=== PATIENT | female | born 1990 | race Two or more races ===

== ENCOUNTER 2016-10-21 05:59 | Emergency (ER) | payer MEDICAID ==
[~2016-10-21] VITALS: Ht 162.6 cm; Wt 81.6 kg
[2016-10-21 07:53] VITALS: BP 118/77
== END 2016-10-21 08:00 | disposition home or self-care (01) ==
LOC: ER 06:08
DX: S20.212A Contusion of left front wall of thorax, initial encounter (principal); S00.81XA Abrasion of other part of head, initial encounter; F17.210 Nicotine dependence, cigarettes, uncomplicated; F12.10 Cannabis abuse, uncomplicated; Z98.51 Tubal ligation status; Z98.890 Other specified postprocedural states; Y08.89XA Assault by other specified means, initial encounter; Y93.89 Activity, other specified; Y99.8 Other external cause status; Y92.89 Other specified places as the place of occurrence of the external cause
CPT/HCPCS: 70450; 71101

== ENCOUNTER 2018-02-26 00:02 | Emergency (ER) | payer MEDICAID ==
[~2018-02-26] VITALS: Ht 162.6 cm; Wt 83.9 kg
[2018-02-26 00:13] VITALS: BP 135/82
[2018-02-26] MEDS ORDERED: LIDOCAINE 1% (LOCAL ANESTH.) PF 5ml SDV ID ONE (00:30)
[2018-02-26] MEDS ORDERED: BACITRACIN TOP OINT 1 UD PKG TOP ONE ×2 (00:30→00:45)
[2018-02-26] MEDS ORDERED: TETANUS-DIPTH-ACEL PERTUSSIS 0.5ML SYRG IM ONE (00:45)
== END 2018-02-26 00:54 | disposition home or self-care (01) ==
LOC: ER 00:04
DX: S61.412A Laceration without foreign body of left hand, initial encounter (principal); F17.210 Nicotine dependence, cigarettes, uncomplicated; W26.8XXA Contact with other sharp object(s), not elsewhere classified, initial encounter; Y93.89 Activity, other specified; Y92.89 Other specified places as the place of occurrence of the external cause; Y99.8 Other external cause status
CPT/HCPCS: 12001; 90471; 90715

== ENCOUNTER 2018-07-28 12:42 | Emergency (ER) | payer MEDICAID ==
[~2018-07-28] VITALS: Ht 162.6 cm; Wt 81.6 kg
[2018-07-28 12:57] VITALS: BP 110/63
[2018-07-28] MEDS ORDERED: TETANUS-DIPTH-ACEL PERTUSSIS 0.5ML SYRG IM ONE (14:45)
== END 2018-07-28 14:55 | disposition home or self-care (01) ==
LOC: ER 12:44
DX: S61.031A Puncture wound without foreign body of right thumb without damage to nail, initial encounter (principal); F17.210 Nicotine dependence, cigarettes, uncomplicated; F12.10 Cannabis abuse, uncomplicated; F11.10 Opioid abuse, uncomplicated; W27.3XXA Contact with needle (sewing), initial encounter; Y93.89 Activity, other specified; Y92.89 Other specified places as the place of occurrence of the external cause; Y99.8 Other external cause status
CPT/HCPCS: 73130

== ENCOUNTER 2019-02-04 02:25 | Emergency (ER) | payer MEDICAID ==
[~2019-02-04] VITALS: Ht 162.6 cm; Wt 81.6 kg
[2019-02-04 02:38] VITALS: BP 138/83
[2019-02-04] MEDS ORDERED: KETOROLAC TROMETH 60MG/2ML VIAL IM ONE (03:00)
[2019-02-04] MEDS ORDERED: cefTRIAXone SOD 1,000 MG VL IM ONE (03:00)
== END 2019-02-04 03:04 | disposition home or self-care (01) ==
LOC: ER 02:27
DX: K04.7 Periapical abscess without sinus (principal); K03.81 Cracked tooth; F17.210 Nicotine dependence, cigarettes, uncomplicated; F12.10 Cannabis abuse, uncomplicated; Z98.51 Tubal ligation status
CPT/HCPCS: 96372; 99283; J0696; J1885

== ENCOUNTER 2019-09-13 12:38 | Emergency (ER) | payer MEDICAID ==
[~2019-09-13] VITALS: Ht 162.6 cm; Wt 81.6 kg
[2019-09-13 12:58] VITALS: BP 124/70
== END 2019-09-13 19:01 | disposition left against medical advice (07) ==
LOC: ER 12:38
DX: L02.413 Cutaneous abscess of right upper limb (principal); Z53.21 Procedure and treatment not carried out due to patient leaving prior to being seen by health care provider

== ENCOUNTER 2019-09-14 07:00 | Emergency (ER) | payer MEDICAID ==
[~2019-09-14] VITALS: Ht 162.6 cm; Wt 81.6 kg
[2019-09-14 09:26] VITALS: BP 115/76
[2019-09-14] MEDS ORDERED: LIDOCAINE 1% HCL (LOCAL ANESTH.) INJ 20ML MDV IJ ONE (10:00)
[2019-09-14] MEDS ORDERED: cefTRIAXone SOD 1,000 MG VL IM ONE (10:45)
== END 2019-09-14 10:55 | disposition home or self-care (01) ==
LOC: ER 07:00
DX: L02.413 Cutaneous abscess of right upper limb (principal); L02.512 Cutaneous abscess of left hand
CPT/HCPCS: 10061; 96372; 99284; J0696; J2001

== ENCOUNTER → 2019-12-21 | Emergency (ER) | payer MEDICAID | END | disposition left against medical advice (07) | LOC: ER 19:16 | DX: L02.91 Cutaneous abscess, unspecified (principal); Z53.21 Procedure and treatment not carried out due to patient leaving prior to being seen by health care provider ==

== ENCOUNTER 2020-01-11 11:16 | Emergency (ER) | payer MEDICAID ==
[~2020-01-11] VITALS: Ht 162.6 cm; Wt 72.6 kg
[2020-01-11 11:27] VITALS: BP 114/61
[2020-01-11] MEDS ORDERED: cefTRIAXone SOD 1,000 MG VL IM ONE (12:15)
== END 2020-01-11 12:42 | disposition home or self-care (01) ==
LOC: ER 11:16
DX: L03.114 Cellulitis of left upper limb (principal); F17.210 Nicotine dependence, cigarettes, uncomplicated
CPT/HCPCS: 96372; 99283; J0696

== ENCOUNTER 2020-01-13 02:49 | Inpatient (IN) | payer MEDICAID ==
[~2020-01-13] VITALS: Ht 162.6 cm; Wt 91.2 kg
[2020-01-13 05:57] LABS: Urine Bacteria MOD /hpf (None Seen); Urine Blood Negative /uL (Negative); Urine Mucus FEW (None Seen); Urine Specific Gravity 1.024 (1.001-1.035); Urine WBC 10 /hpf (0 - 5)
[2020-01-13 05:58] LABS: Basophils # (auto) 0 10 ^3/uL (0-0.2); Basophils % (auto) 0.3 % (0.0-2.0); Eosinophils # (auto) 0.2 10 ^3/uL (0-0.8); Eosinophils % (auto) 2.7 % (0.0-7.0); Hematocrit 38.7 % (36.0-46.0); Lymphocytes # (auto) 1.3 10 ^3/uL (0.4-5.4); Lymphocytes % (auto) 15.8 % (10.0-50.0); Mean Corpuscular Hgb Conc. 33.5 g/dL (32.0-36.0); Mean Corpuscular Volume 89.4 fL (80.0-100.0); Monocytes # (auto) 0.8 10 ^3/uL (0-1.3); Monocytes % (auto) 9.6 % (0.0-12.0); Neutrophils % (auto) 71.6 % (37.0-80.0); Platelet Count (auto) 270 10^3/uL (140-450); Red Blood Cells 4.33 10^6/uL (4.0-5.20); Red Cell Distribution Width 12.4 % (11.8-14.3); White Blood Cell 8.3 10^3/uL (4.4-10.8)
[2020-01-13 06:07] LABS: Chloride 106 mmol/L (98-107); Potassium 3.9 mmol/L (3.5-5.1); Sodium 136 mmol/L (136-145)
[2020-01-13 06:10] LABS: Alcohol, Urine < 3.0 mg/dL (0-5); Amphetamine Screen, Urine POSITIVE (NEGATIVE); Barbiturate Scree,Urine NEGATIVE (NEGATIVE); Benzodiazephine Screen, Urine NEGATIVE (NEGATIVE); Cannabinoid Screen, Urine NEGATIVE (NEGATIVE); Cocaine Screen, Urine NEGATIVE (NEGATIVE); Opiate Scree,Urine POSITIVE (NEGATIVE)
[2020-01-13 06:15] LABS: INR 0.98 (0.9-1.15); Partial Thromboplastin Time 29.1 sec (23.64-32.05)
[2020-01-13 06:16] LABS: Alanine Aminotransferase 19 U/L (13-56); Albumin 3.2 g/dL (3.4-5.0); Alkaline Phosphatase 89 U/L (45-117); Anion Gap 4 (5-15); Aspartate Aminotransferase 19 U/L (15-37); BUN/Creatinine Ratio 19.7; Bilirubin, Total 0.3 mg/dL (0.2-1.0); Blood Urea Nitrogen 13 mg/dL (7-18); Calcium 8.5 mg/dL (8.5-10.1); Carbon Dioxide 26 mmol/L (21-32); GFR African American 135 mL/min; GFR Non-African American 112 mL/min; Glucose 94 mg/dL (74-106); Magnesium 2.3 mg/dL (1.6-2.6); Total Protein 7.3 g/dL (6.4-8.2)
[2020-01-13 06:18] LABS: Phencyclidine Screen, Urine NEGATIVE (NEGATIVE)
[2020-01-13] MEDS ORDERED: cefTRIAXone 1GM/50ML D5W 50 ML IV ONE ×2 (07:15→08:45)
[2020-01-13] MEDS ORDERED: TETANUS-DIPTH-ACEL PERTUSSIS 0.5ML SYR Tdap IM ONE (08:45)
[2020-01-13] MEDS ORDERED: ENOXAPARIN SOD 60 MG/0.6 ML SYRINGE SC ONE (08:45)
[2020-01-13] MEDS ORDERED: HYDROcodone-ACET 5/325MG TAB PO PRN (09:45)
[2020-01-13] MEDS ORDERED: VANCOMYCIN PER PHARMACY 0 MG IV SCH (09:45)
[2020-01-13] MEDS ORDERED: VANCOMYCIN 1GM/250ML 250 ML IV ONE (09:45)
[2020-01-13] MEDS ORDERED: ACETAMINOPHEN 325 MG TAB PO PRN (09:45)
[2020-01-13] MEDS: SODIUM CHLORIDE 0.9% 1,000 ML IV SCH ×2 (10:05→22:44)
[2020-01-13] MEDS ORDERED: ENOXAPARIN SOD 80 MG/0.8ML SYRINGE SC ONE (10:15)
--- NOTE | 2020-01-13 11:45 | NUR ---
Telemetry admit from ER NICO ESTEBAN admitted to Telemetry unit after SBAR received. Patient oriented to SHONNA LOPEZ RN, unit, room, bed, and unit policies regarding patient care and visiting hours. Patient now on continuous telemetry monitoring, tele box # [id number]. Patient weighed by bedscale and encouraged to call if they need something. All questions and concerns addressed, patient verbalized understanding.
--- NOTE | 2020-01-13 11:55 | NUR ---
WOUND CARE NOTE: IN TO SEE PATIENT AT THIS TIME PER WOUND CARE CONSULT REQUEST. PATIENT WAS NOTED AT THAT TIME TO HAVE SKIN INTEGRITY ISSUES TO LEFT FOREARM, WITH ADMITTING DIAGNOSIS OF LEFT UPPER EXTREMITY CELLULITIS. PATIENT RECENTLY ADMITTED TO [facility] FROM ER. SHE HAS INTACT SKIN NOTED. LEFT FOREARM HAS EDEMA, ERYTHEMA, AND INDURATION. SKIN IS TENDER TO THE TOUCH. ADVISED BEDSIDE NURSE AND PATIENT TO ELEVATE LEFT FOREARM USING MULTIPLE PILLOWS TO HELP WITH EDEMA CONTROL. WOUND PHOTO TAKEN AT THIS TIME. NO DRESSING REQUIRED, NO OPEN OR WEEPING AREAS NOTED. RECOMMEND: SURGICAL CONSULT, ELEVATION OF LEFT FOREARM FOR EDEMA CONTROL, SKIN/WOUND CARE PLAN. NO FURTHER WOUND CARE MONITORING NEEDED AT THIS TIME. Addendum: 01/13/20 at 1908 by Ghazal Beauchamp RN Amended: Links added.
[2020-01-13] MEDS ORDERED: PIPERACILLIN-TAZOB 3.375GM 100 ML IV SCH ×2 (12:00)
[2020-01-13] MEDS ORDERED: SULF400T11 PO (12:56)
[2020-01-13 13:00] VITALS: BP 98/54
[2020-01-13 17:00] VITALS: BP 107/61
[2020-01-13] MEDS ORDERED: WARFARIN SODIUM 5 MG TAB PO ONE (17:00)
[2020-01-13] MEDS: VANCOMYCIN 1GM/250ML 250 ML IV SCH (18:00)
--- NOTE | 2020-01-13 18:30 | NUR ---
PT STATED SHE NEEDS "MEDICATION FOR WITHDRAWS". STATED SHE FEELS ANXIOUS AND RESTLESS. PAGED DR Ira OCAMPO. AWAITING CALLBACK. WILL ENDORSE TO NIGHT NURSE.
--- NOTE | 2020-01-13 19:30 | NUR ---
Opening Shift Note Assumed care of patient, awake and alert x4. Patient denies pain or shortness of breath at this time. Instructed on plan of care and to call for assistance as needed, patient verbalized understanding. Bed is locked in lowest position, side rails x 2 are up, and call light is within reach.
--- NOTE | 2020-01-13 19:50 | NUR ---
IV Removal IV to right upper arm DC'd due to infiltration. IV DC'd with clean sterile technique, catheter fully intact. Pressure dressing applied to site and provided patient with an ice pack. Patient tolerated well.
--- NOTE | 2020-01-13 20:00 | NUR ---
Patient Requesting to Leave AMA Patient requesting to leave AMA. 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 Newman has been paged and is still awaiting a call back but she will re-page Dr. Newman to inform him that she needs medication for withdrawals, patient verbalized understanding and still continues to want to leave AMA. This RN educated and discussed with patient the risks and complications, including potential , of leaving AMA with her diagnosis of a DVT to the right lower extremity and left upper extremity abscess. This RN discussed with patient that there is a risk of the blood clot in her right leg dislodging and traveling into her lungs which could potentially lead to . This RN also discussed with patient that she is on IV antibiotics for her abscess to her left upper extremity and is still pending a surgical consult with Dr. Mak to evaluate if she will need surgery to drain that abscess, patient verbalized understanding to everything that was discussed, questions and concerns were addressed, and patient still continues to want to leave AMA. Patient states "I don't feel good, I want to go". This RN informed patient that she would bring in the AMA form for her to sign, which states that we are not liable if anything happens to her upon her departure and that she would page Dr. Newman to update him on her decision to leave, patient verbalized understanding and agreed to sign AMA form.
--- NOTE | 2020-01-13 20:11 | NUR ---
Spoke with Dr. Kaye RE: AMA Notified Dr. Kaye that patient wants to leave AMA due to patient withdrawing from IV heroin and patient does not want any medications to help with her withdrawals. Dr. Kaye also notified that this RN discussed with patient the complications and risks of patient leaving AMA, and patient verbalized understanding and continues to request to leave AMA. Dr. Kaye states that he is going to call Dr. Newman and see if he wants patient to leave with antibiotic and blood thinner prescriptions. Per Dr. Kaye he will call this RN back.
--- NOTE | 2020-01-13 20:14 | NUR ---
Patient Changes Mind Regarding Leaving AMA This RN went back into patient's room with AMA form, patient states she changes her mind and wants to stay. Patient is now requesting medication for withdrawals and for pain. Patient states she is now having pain to lower back (pain scale 10/10). This RN notified patient that she has [place] ordered for pain as needed, patient is requesting a different pain medication. This RN notified patient that she would call doctor back to notify him of her decision to stay and her medication requests, patient verbalized understanding.
--- NOTE | 2020-01-13 20:18 | NUR ---
Spoke with Dr. Kaye RE: Leaving AMA and Medications Notified Dr. Kaye that patient changed her mind regarding leaving AMA and states that she wants to stay and get treated. Dr. Kaye notified that patient is requesting medications for withdrawals and for back pain. Dr. Kaye notified this RN that he has already spoken to Dr. Newman and that Dr. Newman will give this RN a call.
--- NOTE | 2020-01-13 20:20 | NUR ---
Received Call From Dr. Newman Received a call from Dr. Newman. Notified Dr. Newman that patient wanted to leave AMA earlier due to withdrawing from IV heroin and has now agreed to stay. Dr. Newman notified that patient is now requesting medication for withdrawals due to patient feeling sweaty, anxious, and restless and is requesting a different pain medication for back pain (pain scale 10/10). Dr. Newman aware that patient has [place] 5/325mg Q6HR PRN for pain ordered. Orders received from Dr. Newman for the following: Tele psych consult, Gabapentin PO 100mg TID, 1x dose of Gabapentin 300mg PO now, Xanax 0.25mg Q8HRS PRN for anxiety with first dose to be given now, increase [place] to 10/325mg PO Q6HRS PRN for pain but give [place] 5/325mg PO now, 2mg morphine IV x1 now, and change patient's diet to a regular diet. Orders read back and verified. Will carry out orders as received.
[2020-01-13] MEDS ORDERED: GABAPENTIN 300 MG CAP PO ONE (20:30)
[2020-01-13] MEDS ORDERED: MORPHINE SULF INJ 2 MG/ML SYRINGE 1ML IV ONE (20:30)
[2020-01-13] MEDS ORDERED: ALPRAZolam 0.25 MG TAB PO PRN (20:30)
[2020-01-13] MEDS ORDERED: HYDROcodone-ACET 10/325MG TAB PO PRN (20:30)
--- NOTE | 2020-01-13 21:07 | NUR ---
IV insertion IV access obtained, via clean sterile technique by inserting 22 gauge catheter at right forearm after 1 attempt. IV secured properly. No trauma to site. Patient tolerated well.
--- NOTE | 2020-01-13 21:15 | NUR ---
AMA TO SMOKE Patient educated on smoking cessation and risks of complications related to smoking, patient verbalized understanding. Patient notified that she has 30 minutes to get back to the unit or she will have to go through the ER and will have to go through the whole process of being readmitted and that she will not hold this hospital liable if something happens to her downstairs, patient verbalized understanding. Patient has signed AMA to go smoke.
--- NOTE | 2020-01-13 21:24 | NUR ---
OFF UNIT Patient left unit to go smoke. AMA signed and placed in hardchart. No signs/symptoms of distress noted upon departure.
--- NOTE | 2020-01-13 21:50 | NUR ---
PATIENT BACK ON UNIT Patient is back on unit. Vitals are the following: BP: 133/67, HR: 100, SPO2: 100% on RA. No signs/symptoms of distress noted upon return.
[2020-01-13 22:00] VITALS: BP 112/58
--- NOTE | 2020-01-13 22:40 | NUR ---
IV removal IV to right forearm DC'd due to resistance with flushing. IV DC'd with clean sterile technique, catheter fully intact. Pressure dressing applied to site. Patient tolerated well. IV Insertion IV access obtained, via clean sterile technique by inserting 22 gauge catheter at right upper arm after 1 attempt. IV secured properly. No trauma to site. Patient tolerated well.
[2020-01-13] MEDS: PIPERACILLIN-TAZOB 3.375GM 100 ML IV SCH (22:44)
[2020-01-13] MEDS: ENOXAPARIN SOD 80 MG/0.8ML SYRINGE SC SCH (22:45)
--- NOTE | 2020-01-13 22:50 | NUR ---
Tele Psych in Process Tele psych in process.
--- NOTE | 2020-01-13 23:20 | NUR ---
Spoke with Pharmacist Re: Late Administration of Zosyn Spoke with quin Cast and notified him that this RN administered the 20:00 scheduled Zosyn late due to not having IV access. Per Segun, there is no need to change the time of the next scheduled 02:00 Zosyn.
--- NOTE | 2020-01-14 01:06 | NUR ---
Tele Psych Report Received Tele psych report received and placed in hard chart.
[2020-01-14] MEDS: VANCOMYCIN 1GM/250ML 250 ML IV SCH ×2 (01:47→09:40)
[2020-01-14] MEDS: PIPERACILLIN-TAZOB 3.375GM 100 ML IV SCH ×2 (02:57→08:09)
[2020-01-14 05:00] VITALS: BP 107/61
[2020-01-14] MEDS ORDERED: GABAPENTIN 100 MG CAP PO SCH (06:00)
[2020-01-14] MEDS: SODIUM CHLORIDE 0.9% 1,000 ML IV SCH (06:05)
[2020-01-14 07:05] LABS: Albumin 2.8 g/dL (3.4-5.0); Calcium 8.1 mg/dL (8.5-10.1); Potassium 4.2 mmol/L (3.5-5.1)
[2020-01-14 07:11] LABS: BUN/Creatinine Ratio 14.1; Bilirubin, Total 0.4 mg/dL (0.2-1.0); Total Protein 6.9 g/dL (6.4-8.2)
--- NOTE | 2020-01-14 07:30 | NUR ---
Opening Shift Note RECEIVED REPORT FROM NOC RN. Assumed care of patient, ASLEEP. No S/S of distress/SOB or pain. BED IN LOWEST, LOCKED POSITION WITH SIDERAILS UP x2 AND CALL LIGHT WITHIN REACH. WILL instruct on POC and to call for assist PRN, will continue to monitor for changes Q1hr and PRN.
[2020-01-14 09:00] VITALS: BP 120/54
[2020-01-14] MEDS: ENOXAPARIN SOD 80 MG/0.8ML SYRINGE SC SCH (09:41)
[2020-01-14 09:58] LABS: Basophils # (auto) 0 10 ^3/uL (0-0.2); Basophils % (auto) 0.4 % (0.0-2.0); Eosinophils # (auto) 0.2 10 ^3/uL (0-0.8); Eosinophils % (auto) 3.3 % (0.0-7.0); Hematocrit 41.5 % (36.0-46.0); Hemoglobin 13.6 g/dL (12.2-16.2); Lymphocytes # (auto) 1.5 10 ^3/uL (0.4-5.4); Mean Corpuscular Hemoglobin 29.3 pg (28.0-32.0); Mean Corpuscular Hgb Conc. 32.7 g/dL (32.0-36.0); Mean Corpuscular Volume 89.6 fL (80.0-100.0); Monocytes # (auto) 0.5 10 ^3/uL (0-1.3); Neutrophils # (auto) 4.1 10 ^3/uL (1.6-8.6); Neutrophils % (auto) 65.3 % (37.0-80.0); Platelet Count (auto) 300 10^3/uL (140-450); Red Blood Cells 4.63 10^6/uL (4.0-5.20); Red Cell Distribution Width 12.5 % (11.8-14.3); White Blood Cell 6.3 10^3/uL (4.4-10.8)
--- NOTE | 2020-01-14 10:25 | NUR ---
ROUNDS PATIENT NOT IN ROOM. IV DISCONNECTED, NO CATHETER FOUND. GOWN WITH TELE BOX FOUND ON FLOOR NEXT TO BED. CHARGE NURSE AMY NOTIFIED.
--- NOTE | 2020-01-14 10:30 | NUR ---
PATIENT ELOPED PATIENT NOT IN ROOM. IV DISCONNECTED. GOWN WITH TELE BOX ON FLOOR NEXT TO BED. ANIMAL DOCTOR'S DEPARTMENT WILL BE NOTIFIED DUE TO PATIENT LEAVING WITH IV IN RIGHT SHOULDER.
--- NOTE | 2020-01-14 10:45 | NUR ---
CALLED 'S DEPARTMENT DISPATCH, SPOKE WITH DISPATCHER JONO. GAVE DISPATCHER ALL PERTINENT INFORMATION REGARDING THE PATIENT'S ELOPEMENT WITH IV IN PLACE. DISPATCHER ADVISED SHE WOULD PASS THE INFORMATION ALONG.
--- NOTE | 2020-01-14 10:48 | NUR ---
DR. OCAMPO NOTIFIED OF PATIENT ELOPEMENT.
== END 2020-01-14 10:32 | disposition left against medical advice (07) | DRG 197 ==
LOC: ER 02:51 → TELE 02:52 → TELE-WESTW 11:48
PROVIDERS: ADMIT Internal Medicine; ATTEND Internal Medicine
DX: I82.441 Acute embolism and thrombosis of right tibial vein (principal); L03.115 Cellulitis of right lower limb; L03.114 Cellulitis of left upper limb; N39.0 Urinary tract infection, site not specified; F15.10 Other stimulant abuse, uncomplicated; F17.210 Nicotine dependence, cigarettes, uncomplicated; Z83.3 Family history of diabetes mellitus; Z53.29 Procedure and treatment not carried out because of patient's decision for other reasons
CPT/HCPCS: 36415; 71045; 73200; 80053; 80202; 80307; 81001; 83735; 83880; 84484; 85025; 85610; 85730; 87040; 87086; 90471; 90715; 93005; 93971; 96365; 96366; 96367; 96372; G0378; J0696; J2543

== ENCOUNTER 2020-03-09 12:58 | Emergency (ER) | payer MEDICAID ==
[~2020-03-09] VITALS: Ht 162.6 cm; Wt 81.6 kg
[~2020-03-09 12:58] MED LIST: SULF400T11 PO
[2020-03-09] MEDS ORDERED: LIDOCAINE 1% HCL (LOCAL ANESTH.) INJ 20ML MDV IJ ONE (15:00)
[2020-03-09] MEDS ORDERED: cefTRIAXone SOD 1,000 MG VL IM ONE (15:00)
[2020-03-09 15:27] VITALS: BP 111/52
== END 2020-03-09 15:34 | disposition home or self-care (01) ==
LOC: ER 12:58
DX: L02.414 Cutaneous abscess of left upper limb (principal); F17.210 Nicotine dependence, cigarettes, uncomplicated; Z98.51 Tubal ligation status
CPT/HCPCS: 10060; 96372; 99283; J0696; J2001

== ENCOUNTER 2020-03-11 14:33 | Emergency (ER) | payer MEDICAID ==
[~2020-03-11] VITALS: Ht 162.6 cm; Wt 81.6 kg
[2020-03-11 14:44] VITALS: BP 132/58
== END 2020-03-11 16:24 | disposition home or self-care (01) ==
LOC: ER 14:33
DX: Z48.01 Encounter for change or removal of surgical wound dressing (principal)

== ENCOUNTER 2020-09-27 23:18 | Emergency (ER) | payer MEDICAID ==
[~2020-09-27] VITALS: Ht 162.6 cm; Wt 81.6 kg
[2020-09-27 23:40] VITALS: BP 115/71
[2020-09-27] MEDS ORDERED: CEPHALEXIN 250 MG CAP PO ONE (23:45)
[2020-09-27] MEDS ORDERED: LIDOCAINE 1% HCL (LOCAL ANESTH.) INJ 20ML MDV ID ONE (23:45)
[2020-09-28] MEDS ORDERED: BACITRACIN TOP OINT 1 UD PKG TOP ONE (00:45)
== END 2020-09-28 02:41 | disposition home or self-care (01) ==
LOC: ER 23:22
DX: L02.413 Cutaneous abscess of right upper limb (principal); F17.210 Nicotine dependence, cigarettes, uncomplicated
CPT/HCPCS: 10060; 87077; 87186; 87205; 99283; J2001